=== PATIENT | female | born 1995 | race Caucasian/White ===

== ENCOUNTER 2020-05-22 17:14 | Outpatient (CLI) | payer OTHER, SELFPAY ==
[2020-05-22 18:02] LABS: Basophils Percent Auto 0.2 % (0.2-1.2); Eosinophils Percent Auto 0.3 % (0-4.4); Hematocrit 35.9 % (37.0-47.0); Hemoglobin 12.6 g/dL (12.0-15.0); Immature Granulocyte Absolute 0.03 K/mm3 (0.00-0.031); Immature Granulocyte Percent A 0.3 % (0-0.5); Lymphocytes Absolute Auto 2.53 K/mm3 (0.9-3.2); Lymphocytes Percent Auto 26.8 % (18.3-44.2); Mean Corpuscular HGB Conc 35.1 g/dl (32-36); Mean Corpuscular Hemoglobin 32.1 pg (26-34); Mean Corpuscular Volume 91.3 fl (80-100); Mean Platelet Volume 9.7 fl (7.4-10.4); Monocytes Absolute Auto 0.5 K/mm3 (0.1-0.6); Monocytes Percent Auto 5.7 % (2.6-8.5); Neutrophils Absolute Auto 6.3 K/mm3 (1.3-6.7); Neutrophils Percent Auto 66.7 % (45.5-73.1); Platelet Count Result 294 k/mm3 (150-375); Red Blood Count 3.93 M/mm3 (4.2-5.4); Red Cell Distribution Width 12.3 % (11.5-14.5); White Blood Count 9.5 K/mm3 (4.5-10.0)
[2020-05-22 18:12] LABS: Hemoglobin A1C 4.4 % (<5.7)
[2020-05-22 18:54] LABS: HIV 1/2 Ab P24 Ag Result Negative (Negative)
[2020-05-22 18:55] LABS: Vitamin D 25 Hydroxy 35.5 ng/mL
[2020-05-22 19:06] LABS: Rubella IgG Antibody 13.2 IU/ML
[2020-05-22 19:26] LABS: Hepatitis B Surface Anti Res Positive
[2020-05-25 08:22] LABS: Rapid Plasma Reagin Non-Reactive (NonReactive)
== END 2020-05-22 17:15 | disposition home or self-care (01) ==
LOC: ANHLAB 17:19
PROVIDERS: PCP Obstetrics & Gynecology Gynecology; Visit Provider Obstetrics & Gynecology Gynecology
DX: Z36.9 Encounter for antenatal screening, unspecified (principal)
CPT/HCPCS: 36415; 82306; 83036; 85025; 85461; 86592; 86703; 86706; 86762; G0432

== ENCOUNTER 2020-06-22 16:46 | Outpatient (CLI) | payer OTHER, SELFPAY ==
[2020-06-22 18:21] LABS: Free T4 Free Thyroxine 0.72 ng/mL (0.78-2.19)
== END 2020-06-22 16:47 | disposition home or self-care (01) ==
LOC: ANHLAB 16:47
PROVIDERS: PCP Obstetrics & Gynecology Gynecology; Visit Provider Obstetrics & Gynecology Gynecology
DX: Z34.92 Encounter for supervision of normal pregnancy, unspecified, second trimester (principal); Z3A.00 Weeks of gestation of pregnancy not specified
CPT/HCPCS: 36415; 84439; 84443

== ENCOUNTER 2020-06-29 16:30 | Outpatient (CLI) | payer OTHER, SELFPAY ==
--- NOTE | ~2020-06-29 | US_ITS ---
EXAMINATION: US OB /maternal detail DATE: 06/29/2020 17:10 INDICATION: anatomy scan during second trimester TECHNIQUE: Multiple obstetric sonographic images performed. FINDINGS: There is a single living fetus in transverse lie. The placenta is fundal and not low-lying. MARISA jose de jesus ures 12.4 cm. Which is normal (5th%-95%: 9.7-21.6 cm at 22 weeks estimated gestational age) hea rt rate of 155 beats per minute. The following anatomy was identified as normal: Ventricles, choroid plexus, falx and cava septum pellucidum Cerebellum and cisterna magna Nuchal fold Spine Heart Diaphragm Stomach Kidneys Bladder 3 vessel cord and cord insertion Bilateral upper and lower extremities including hands and feet The following biometric data were obtained: BPD: 4.7 cm -> 20 weeks 1 days Head circumference: 18.6 cm -> 20 weeks 6 days Abdominal circumference: 15.9 cm -> 21 weeks 0 days Femur length: 3.6 cm -> 21 weeks 2 days These measurements are concordant. Head circumference to abdominal circumference ratio: 1.17 (normal range 1.06-1.25). Estimated weight: 397 g (+/-) 60 g. or 14 oz. (+/-) 2 oz. IMPRESSION: 1. Single living fetus with transverse lie with heart rate of 155 bpm. 2. Gestational age by ultrasound of 20 weeks 6 day(s) (+/-) 1 week 3 day(s) with ultrasound estimat ed date of delivery (TRENA) of 11/10/2020. Estimated weight is 7th percentile by Hadlock criteria w hen 11/01/2020 is used as the TRENA. Please correlate with clinical information or earlier ultrasounds f or most accurate TRENA. 3. Normal survey. 4. Normal amniotic fluid index of 12.4 cm. Reviewed, dictated and finalized at location H. STRIAL PARAMEDIC IMPRESSION: 1. Single living fetus with transverse lie with heart rate of 155 bpm. 2. Gestational age by ultrasound of 20 weeks 6 day(s) (+/-) 1 week 3 day(s) w ith ultrasound estimated date of delivery (TRENA) of 11/10/2020. Estimated we ight is 7th percentile by Hadlock criteria when 11/01/2020 is used as the TRENA. P lease correlate with clinical information or earlier ultrasounds for most accur ate TRENA. 3. Normal survey. 4. Normal amniotic fluid index of 12.4 cm.
== END 2020-06-29 16:31 | disposition home or self-care (01) ==
PROVIDERS: Visit Provider Obstetrics & Gynecology Gynecology
DX: Z34.92 Encounter for supervision of normal pregnancy, unspecified, second trimester (principal); Z3A.22 22 weeks gestation of pregnancy
CPT/HCPCS: 76805

== ENCOUNTER 2020-08-10 10:03 | Outpatient (CLI) | payer OTHER, SELFPAY ==
[2020-08-10 11:53] LABS: Hematocrit 35.2 % (37.0-47.0); Hemoglobin 12.1 g/dL (12.0-15.0)
[2020-08-10 12:08] LABS: Glucose 1 Hour PP 50gm Dose 105 mg/dL
[2020-08-10 12:49] LABS: Free T4 Free Thyroxine 0.71 ng/mL (0.78-2.19); HIV 1/2 Ab P24 Ag Result Negative (Negative); Vitamin D 25 Hydroxy 49.7 ng/mL
[2020-08-10 13:04] LABS: Hepatitis B Surface Antigen Negative (Negative)
== END 2020-08-10 10:04 | disposition home or self-care (01) ==
PROVIDERS: Visit Provider Obstetrics & Gynecology Gynecology
DX: E03.9 Hypothyroidism, unspecified (principal); Z34.92 Encounter for supervision of normal pregnancy, unspecified, second trimester; Z3A.00 Weeks of gestation of pregnancy not specified
CPT/HCPCS: 36415; 82306; 82947; 84439; 84443; 85014; 85018; 86703; 87340; G0432

== ENCOUNTER 2020-08-20 15:08 | Outpatient (CLI) | payer OTHER, SELFPAY ==
--- NOTE | ~2020-08-20 | US_ITS ---
EXAMINATION: US OB follow up DATE: 08/20/2020 15:42 INDICATION: Evaluate growth and amniotic fluid index. TECHNIQUE: Real-time ultrasound of the pelvis was performed. The interpreting radiologist was not pre sent for the study. COMPARISON: 06/29/2020 FINDINGS: There is a single living fetus in breech presentation. The placenta is anterior. heart rate is 139 beats per minute (bpm). The amniotic fluid index is 10.7 cm, which is normal (5th%-95%: 9.0-23. 4 cm at 30 weeks estimated gestational age). The following biometric data were obtained: BPD: 6.8 cm -> 27 weeks 2 days Head circumference: 25.3 cm -> 27 weeks 4 days Abdominal circumference: 24.7 cm -> 29 weeks 0 days Femur length: 5.5 cm -> 29 weeks 1 days These measurements are concordant. Head circumference to abdominal circumference ratio: 1.03 (normal range 1.01-1.21). Estimated weight: 1276 g (+/-) 191 g. or 2 lbs. 13 oz. (+/-) 7 oz. IMPRESSION: 1. Single living fetus in breech presentation with heart rate of 139 bpm. 2. Gestational age by ultrasound of 28 weeks 2 day(s) +/- 2 week(s) 0 day(s) with ultrasound estimate d date of delivery (TRENA) of 11/10/2020. Estimated weight is 6th percentile by Hadlock criteria wh en 10/28/2020 is used as the TRENA. Both the estimated gestational age and percentile utilizing the prov ided gestational age are unchanged since the previous ultrasound. Please correlate with clinical info rmation or earlier ultrasounds for most accurate TRENA. 3. Normal amniotic fluid index of 10.7 cm. Reviewed, dictated and finalized at location A. NG END BANDER IMPRESSION: 1. Single living fetus in breech presentation with heart rate of 139 bpm. 2. Gestational age by ultrasound of 28 weeks 2 day(s) +/- 2 week(s) 0 day(s) wi th ultrasound estimated date of delivery (TRENA) of 11/10/2020. Estimated caron ght is 6th percentile by Hadlock criteria when 10/28/2020 is used as the TRENA. Levon th the estimated gestational age and percentile utilizing the provided gestatio nal age are unchanged since the previous ultrasound. Please correlate with clin ical information or earlier ultrasounds for most accurate TRENA. 3. Normal amniotic fluid index of 10.7 cm.
== END 2020-08-20 15:09 | disposition home or self-care (01) ==
PROVIDERS: Visit Provider Obstetrics & Gynecology Gynecology
DX: Z36.9 Encounter for antenatal screening, unspecified (principal); Z3A.28 28 weeks gestation of pregnancy
CPT/HCPCS: 76816

== ENCOUNTER 2020-10-03 10:47 | Outpatient (CLI) | payer OTHER, SELFPAY ==
[2020-10-03 11:43] LABS: Thyroid Stimulating Hormone 0.579 uIU/mL (0.465-4.680)
== END 2020-10-03 10:48 | disposition home or self-care (01) ==
LOC: ANHLAB 10:48
PROVIDERS: Visit Provider Obstetrics & Gynecology Gynecology
DX: E03.9 Hypothyroidism, unspecified (principal)
CPT/HCPCS: 36415; 84439; 84443

== ENCOUNTER 2020-10-26 07:11 | Inpatient (IN) | payer OTHER, SELFPAY ==
[2020-10-26] VITALS (99 sets, daily range): BP systolic 91–138; BP diastolic 44–91; PULSE 68–107; RESP 16; TEMP 36.3–36.8; O2SAT 98–100; BMI 29.5
--- NOTE | 2020-10-26 07:47 | LDADM ---
This patient, Rufina Laguerre, was admitted to Labor/Delivery/Recovery 107 on 10/26/20 at 07:11. Plans for labor, pain management and were discussed with patient. Patient/family oriented to hospital policies and general routines including ID bracelet, bed and alarms, visiting hours, pain management, procedures, bathroom and other care routines, personal items, smoking policy, room service/diet and guest tray routines, infant security routines, and visiting hours. Patient/Family are encouraged to report perceived risks to care and to ask questions if they do not understand what they are told or what they should do. See OBIX for further documentation.
[2020-10-26] MEDS: LACTATED RINGERS 1,000 ML 125 ML IV CONT ×2 (07:53→11:31)
[2020-10-26] MEDS: OXYTOCIN 30 UNITS/NS 500 ML 30 UNITS/500 ML BAG IV CONT (07:55)
[2020-10-26 08:03] LABS: Basophils Percent Auto 0.3 % (0.2-1.2); Eosinophils Percent Auto 0.2 % (0-4.4); Hematocrit 38.9 % (37.0-47.0); Hemoglobin 13.1 g/dL (12.0-15.0); Immature Granulocyte Absolute 0.11 K/mm3 (0.00-0.031); Immature Granulocyte Percent A 0.9 % (0-0.5); Lymphocytes Absolute Auto 2.11 K/mm3 (0.9-3.2); Lymphocytes Percent Auto 16.9 % (18.3-44.2); Mean Corpuscular HGB Conc 33.7 g/dl (32-36); Mean Corpuscular Volume 92.2 fl (80-100); Mean Platelet Volume 9.8 fl (7.4-10.4); Monocytes Absolute Auto 0.8 K/mm3 (0.1-0.6); Monocytes Percent Auto 6.3 % (2.6-8.5); Neutrophils Absolute Auto 9.4 K/mm3 (1.3-6.7); Neutrophils Percent Auto 75.4 % (45.5-73.1); Platelet Count Result 277 k/mm3 (150-375); Red Blood Count 4.22 M/mm3 (4.2-5.4); Red Cell Distribution Width 12.6 % (11.5-14.5); White Blood Count 12.5 K/mm3 (4.5-10.0)
--- NOTE | 2020-10-26 08:22 | WPDOBADMIT ---
Obstetrics - Admit Note Admission Note: record reviewed. No pertinent additions to the history and/or any subsequent changes in the physical findings that are not consistent with the expected course of the were found. Additions to the history and/or subsequent changes in the physical findings follow. here for MIL. Cervix 2/70/-2 AROM with clear fluids. FHTs reactive.
--- NOTE | 2020-10-26 11:53 | WPDANESEPP ---
Anes - Eval Pre Procedure Procedure: labor epidural Date/Time: 10/26/20 11:53 Pre Op Diagnosis: IOL Patient Data Age: 25 Gender: F Height: 1.68 m Weight: 83 kg Last Vital Signs Temp 36.8 C 10/26/20 09:30 Pulse 97 10/26/20 11:52 BP 124/57 L 10/26/20 11:52 Pulse Ox 100 10/26/20 11:48 Allergies Allergy/AdvReac Type Severity Reaction Status Date / Time No Known Allergies Allergy Verified 10/09/20 14:48 Home Medications Medication Instructions Recorded Confirmed Type ergocalciferol (vitamin D2) 1,250 mcg PO WEEKLY 10/09/20 10/26/20 History [Vitamin D2] levothyroxine 75 mcg PO DAILY 10/09/20 10/26/20 History prenat.vits,kemal,jfh-ahte-rsrrs 1 tablet PO DAILY 10/09/20 10/26/20 History [ #2] Laboratory Tests 10/26/20 10/26/20 10/26/20 07:42 07:42 07:42 WBC 12.5 K/mm3 H K/mm3 (4.5-10.0) RBC 4.22 M/mm3 M/mm3 (4.2-5.4) Hgb 13.1 g/dL g/dL (12.0-15.0) Hct 38.9 % % (37.0-47.0) MCV 92.2 fl fl (80-100) MCH 31.0 pg pg (26-34) MCHC 33.7 g/dl g/dl (32-36) RDW 12.6 % % (11.5-14.5) Plt Count 277 k/mm3 k/mm3 (150-375) MPV 9.8 fl fl (7.4-10.4) Immature Gran % (Auto) 0.9 % H % (0-0.5) Neut % (Auto) 75.4 % H % (45.5-73.1) Lymph % (Auto) 16.9 % L % (18.3-44.2) [place] % (Auto) 6.3 % % (2.6-8.5) Eos % (Auto) 0.2 % % (0-4.4) Baso % (Auto) 0.3 % % (0.2-1.2) Lymph # (Auto) 2.11 K/mm3 K/mm3 (0.9-3.2) [place] # (Auto) 0.8 K/mm3 H K/mm3 (0.1-0.6) Eos # (Auto) 0.0 K/mm3 K/mm3 (0-0.3) Baso # (Auto) 0.0 K/mm3 K/mm3 (0.0-0.1) Abs Immat Gran (auto) 0.11 K/mm3 H K/mm3 (0.00-0.031) Absolute Neuts (auto) 9.4 K/mm3 H K/mm3 (1.3-6.7) Absolute Nucleated RBC 0.0 K/mm3 K/mm3 (0.0-0.012) Nucleated RBC % 0.0 % % (0.0-0.2) RPR Pending Blood Type O Positive Antibody Screen Negative Patient hx anesthesia problems: none Family hx anesthesia problems: none [facility] Past Medical History Medical History (Updated 10/26/20 @ 11:54 by Cristy Blanc CRNA) Hypothyroid Family History Family History Grandparent Borderline diabetes Mother Chiari I malformation Social History Social History Smoking status: Never smoker Substance use: never Spiritual care concerns: No Exam Day of Procedure 10/26/20 11:53 Patient weight: overweight Heart: regular rate and rhythm Lungs: normal air movement Airway: Mallampati scale class II Neurological: alert and oriented
--- NOTE | 2020-10-26 15:42 | P.PCNOB_ITS ---
OB - Delivery Note Procedure Delivery date: 10/26/20 Procedure: events: Labor Induction Intrapartal events: None Induction method: AROM and per pitocin protocol Delivery monitor: external FHT and internal uterine Route of delivery: Laceration Description: Perineal - 2nd Degree Delivery repair: vicryl (3-0) Specimen: No Quantitative Blood Loss (ml): 53 Anesthesia type: Epidural Disposition: floor [place] Baby Date of : 10/26/20 Weeks of gestation at delivery: 39 Infant gender: Female presentation: vertex position: Right Occiput Anterior Placenta delivery description: Spontaneous cord vessel description: 3 Vessels and Nuchal Cord score one minute: 9 score five minutes: 9
--- NOTE | 2020-10-26 15:43 | PM.OBDSVD ---
DS: Admitting Diagnosis Admitting Diagnosis Admitting Diagnosis: IUP 39 wk DS: Discharge Diagnosis Discharge Diagnosis (1) (normal spontaneous vaginal delivery): Code(s): O80 - Encounter for full-term uncomplicated delivery Status: Acute OB - DS: Summary OB Procedures : Ultrasound OB Procedures Intrapartum: Spontaneous Vag Delivery OB Procedures: : None Peripartum Data Delivery Method: Natural Vaginal Laceration Description: Perineal - 2nd Degree complications: none Status at Discharge Functional status at discharge: independent ambulation Overall status at discharge: patient is progressing back to baseline Time Spent with Patient Time attestation: Total time spent providing and/or coordinating discharge services: DS: Data Data Completed and Pending Labs on day of discharge: Labs from last 24 hours 10/26/20 10/26/20 10/26/20 07:42 07:42 07:42 WBC 12.5 H RBC 4.22 Hgb 13.1 Hct 38.9 MCV 92.2 MCH 31.0 MCHC 33.7 RDW 12.6 Plt Count 277 MPV 9.8 Immature Gran % (Auto) 0.9 H Neut % (Auto) 75.4 H Lymph % (Auto) 16.9 L [place] % (Auto) 6.3 Eos % (Auto) 0.2 Baso % (Auto) 0.3 Lymph # (Auto) 2.11 [place] # (Auto) 0.8 H Eos # (Auto) 0.0 Baso # (Auto) 0.0 Abs Immat Gran (auto) 0.11 H Absolute Neuts (auto) 9.4 H Absolute Nucleated RBC 0.0 Nucleated RBC % 0.0 RPR Pending Blood Type O Positive Antibody Screen Negative Discharge Plan Discharge Attending physician on discharge: Angeli Poe Discharging Clinician: Angeli Poe Anticipated Discharge Date/Time: 10/27/20 15:44 Patient Disposition: Home, Self-Care Activity: may shower and pelvic rest Diet: regular Discharge Instructions: Education: Mom and Baby Guide Given to: Mother Follow-Up: Call your delivering provider's office for an appointment to be seen in: 6 Week Mom and baby should come to the [facility] for the follow-up appointment. Appointment Date/Time:October at 8:00 am What to expect at your follow-up visit: Blood Pressure Check Physical Assessment Call [phone] if you are unable to keep your appointment time. BREAST CARE: * Wear a snug supportive bra. Bottle Feeding: * May apply ice packs EPISIOTOMY/PERINEAL CARE: * Until bleeding stops, use your ann bottle after urinating * Change your pad frequently throughout the day * You may take sitz baths several times a day (fill your bathtub with warm water and soak for 20 minutes.) Do NOT bathe in the water * No tub baths until seen by your physician - You may shower ACTIVITY: * Rest as much as possible. * Do not exercise or lift anything heavier than your baby (such as laundry or other children.) * Avoid stairs or driving as much as possible. * Do not put anything into the vagina. No douching, tampons, or sexual activity until seen by physician. NOTIFY PHYSICIAN IF YOU HAVE ANY QUESTIONS OR IF ANY OF THE FOLLOWING SYMPTOMS OCCUR: * If your episiotomy becomes red, swollen, or more painful than what you have experienced in the hospital. * If your vaginal bleeding becomes foul smelling. * If your vaginal bleeding becomes more heavy than a period or if your bleeding changes from pink to bright red. However, you may pass an occasional walnut-sized clot once or twice for the first week . * If you experience a sharp, shooting pain in you calves. * If you discover a hard, reddened area on your breast or if you experience flu-like symptoms. DIET: * Eat regular, well-balanced meals. * Drink plenty of fluids daily. If , drink to thirst. Patient Instructions: Antibiotic Form Stand Alone Forms: General Discharge Information Follow-up/Referrals: Angeli Poe MD [Physician] - 6 Weeks Discharge Medications: New norethindrone (c
[2020-10-26] MEDS: OXYTOCIN 30 UNITS/NS 500 ML 30 UNITS/500 ML BAG 125 UNITS IV CONT (16:06)
[2020-10-26] MEDS: WITCH HAZEL 40 PADS 1 PAD TOPICAL ×2 (17:47→18:48)
[2020-10-26] MEDS: BENZOCAINE 20% AER SPR (*SP) 56 GM CAN 1 SPRAY TOPICAL ×2 (17:47→18:48)
--- NOTE | 2020-10-26 19:09 | OBPPTRN ---
Patient transferred to post room #283 via wheelchair. Support person present. Oriented to unit, room, information board, rooming in, admission packet and security measures. Patient verbalizes understanding.
[2020-10-27] VITALS: BP 115/63; PULSE 79; RESP 16; TEMP 36.7; O2SAT 99
[2020-10-27] MEDS: DOCUSATE SODIUM 100 MG CAPSULE PO ×3 (03:16→15:45)
[2020-10-27 03:40] VITALS: BP 112/73; PULSE 76; RESP 16; TEMP 36.6; O2SAT 100
[2020-10-27 04:14] LABS: Hematocrit 36.6 % (37.0-47.0); Hemoglobin 12.3 g/dL (12.0-15.0)
[2020-10-27 06:59] LABS: Rapid Plasma Reagin Non-Reactive (NonReactive)
[2020-10-27] MEDS: IBUPROFEN 600 MG TABLET PO ×2 (07:21→15:44)
[2020-10-27] MEDS: MULTIVIT/MIN/PREN/FOL AC/IRON TABLET 1 TAB PO (07:22)
[2020-10-27] MEDS: LEVOTHYROXINE SODIUM 75 MCG TABLET PO (07:22)
[2020-10-27 07:27] VITALS: BP 118/67; PULSE 75; RESP 18; TEMP 36.3
--- NOTE | 2020-10-27 07:43 | P.PNOB_ITS ---
OB - PN: Subj Subjective Date/time seen: 10/27/20 07:43 Patient comments: no complaints and pain well controlled baby status: doing well OB - PN: Obj Data Labs CBC & Chem 7: 10/27/20 03:11 Labs: Laboratory Results - last 24 hr 10/26/20 10/26/20 10/26/20 07:42 07:42 07:42 WBC 12.5 H RBC 4.22 Hgb 13.1 Hct 38.9 MCV 92.2 MCH 31.0 MCHC 33.7 RDW 12.6 Plt Count 277 MPV 9.8 Immature Gran % (Auto) 0.9 H Neut % (Auto) 75.4 H Lymph % (Auto) 16.9 L [place] % (Auto) 6.3 Eos % (Auto) 0.2 Baso % (Auto) 0.3 Lymph # (Auto) 2.11 [place] # (Auto) 0.8 H Eos # (Auto) 0.0 Baso # (Auto) 0.0 Abs Immat Gran (auto) 0.11 H Absolute Neuts (auto) 9.4 H Absolute Nucleated RBC 0.0 Nucleated RBC % 0.0 RPR Non-reactive Blood Type O Positive Antibody Screen Negative 10/27/20 03:11 WBC RBC Hgb 12.3 Hct 36.6 L MCV MCH MCHC RDW Plt Count MPV Immature Gran % (Auto) Neut % (Auto) Lymph % (Auto) [place] % (Auto) Eos % (Auto) Baso % (Auto) Lymph # (Auto) [place] # (Auto) Eos # (Auto) Baso # (Auto) Abs Immat Gran (auto) Absolute Neuts (auto) Absolute Nucleated RBC Nucleated RBC % RPR Blood Type Antibody Screen OB - PN A/P Plan day: 1 Plan: routine care Comments: plans oc's Time Spent With Patient Time: Total time spent is greater than 50% in coordination of care (as documented) at patient's floor/unit and/or counseling patient: Exam : Bimanual exam- vagina & uterus: other (Uterus firm, nt @U)
--- NOTE | 2020-10-27 08:00 | PC.NURSE ---
consult with pt., mother reports she had issues with latch and milk supply with first child. Mother states she did not get her milk in and has breast hypoplasia. Mother states she had depression and anxiety over with first and has had anxiety with this child. Mother wishes to attempt infant to breast a few minutes each feeding and will then bottle feed. Mother does not wish to attempt for more than a few minutes or pump, due to anxiety. Offered to assist with feedings, mother can call out.
[2020-10-27 12:00] VITALS: BP 103/55; PULSE 73; RESP 18; TEMP 36.3
--- NOTE | 2020-10-27 14:44 | WPDANLDPN2 ---
Anes-Prog Note L&D Date/Time: 10/27/20 14:44 Comfortable throughout: labor and delivery Neuraxial method: epidural Epidural/Spinal procedure site: clean & non-tender Neuro status: Neuro function grossly intact. Cardiovascular status: normal Respiratory status: normal Airway patency: baseline Mental status: baseline Post-Op hydration status: normal Vital Signs: Last Vital Signs Temp 97.3 F L 10/27/20 12:00 Pulse 73 10/27/20 12:00 Resp 18 10/27/20 12:00 BP 103/55 L 10/27/20 12:00 Pulse Ox 100 10/27/20 03:40 Pain score (VAS): 0/10 I/O: Intake & Output 10/26/20 10/27/20 10/27/20 23:59 07:59 15:59 Intake Total 2000 Output Total 146 Balance 1854 Post-procedural complaints: none Patient feedback: Patient satisfied with anesthetic care.
[2020-10-27] MEDS: WITCH HAZEL 40 PADS 1 PAD TOPICAL (15:44)
[2020-10-27] MEDS: BENZOCAINE 20% AER SPR (*SP) 56 GM CAN 1 SPRAY TOPICAL (15:44)
[2020-10-27 18:40] VITALS: BP 115/68; PULSE 76; RESP 18; TEMP 36.6; O2SAT 100
[2020-10-28] MEDS: IBUPROFEN 600 MG TABLET PO ×2 (03:19→09:51)
[2020-10-28] MEDS: WITCH HAZEL 40 PADS 1 PAD TOPICAL (07:58)
[2020-10-28] MEDS: BENZOCAINE 20% AER SPR (*SP) 56 GM CAN 1 SPRAY TOPICAL (07:58)
[2020-10-28] MEDS: DOCUSATE SODIUM 100 MG CAPSULE PO (07:58)
[2020-10-28 08:00] VITALS: BP 122/73; PULSE 76; RESP 18; TEMP 36.1
--- NOTE | 2020-10-28 08:23 | PM.OBPNVD ---
OB - PN: Subj Subjective Date/time seen: 10/28/20 0823 no complaints OB - PN: Obj Data Labs CBC & Chem 7: 10/27/20 03:11 OB - PN A/P Assessment and Plan (1) (normal spontaneous vaginal delivery): Code(s): O80 - Encounter for full-term uncomplicated delivery Status: Acute Assessment and Plan: d/c home Time Spent With Patient Time: Total time spent is greater than 50% in coordination of care (as documented) at patient's floor/unit and/or counseling patient:
--- NOTE | 2020-10-28 08:50 | PC.NURSE ---
Consult with pt., mother reports she has been bottle feeding and will attempt infant to breast at times. Mother states she feels content with this feeding plan and will call if she has questions or concerns. Mother states she is appreciative for LC consult and understanding her wishes, and not having pressure to exclusively breastfeed with her situation. Assured mother how she feeds her child is her choice and hospital will follow her wishes.
--- NOTE | 2020-10-28 09:00 | PC.NURSE ---
Patient was given the opportunity to view the discharge video Mother & Baby Care, The First Two Weeks and to ask questions. Patient declined viewing the video and has been given the mother/baby guide for home reference.
--- NOTE | 2020-10-28 10:44 | PC.NURSE ---
Self care and infant care discharge instructions given including follow up visit date and time. Pt. verbalized understanding. No questions or concerns voiced. Very pleasant and cooperative. at side.
[2020-10-29 08:36] VITALS: BP 119/65; PULSE 64; RESP 20; TEMP 36.6; O2SAT 100
== END 2020-10-28 13:25 | disposition home or self-care (01) | DRG 807 ==
LOC: ANHLDR 10-28 20:09 → ANHOB2 10-28 20:09
PROVIDERS: Admitting Provider Obstetrics & Gynecology Gynecology; Visit Provider Obstetrics & Gynecology
DX: O99.284 Endocrine, nutritional and metabolic diseases complicating childbirth (principal); Z37.0 Single live birth; Z3A.39 39 weeks gestation of pregnancy; E03.9 Hypothyroidism, unspecified; O70.1 Second degree perineal laceration during delivery
CPT/HCPCS: 36415; 85014; 85018; 85025; 86592; 86850; 86900; 86901; A9270; J2590; J2795; J7120

== ENCOUNTER 2020-12-21 13:37 | Outpatient (CLI) | payer OTHER, SELFPAY ==
[2020-12-21 15:17] LABS: Thyroid Stimulating Hormone 0.201 uIU/mL (0.465-4.680)
[2020-12-21 18:52] LABS: Free T4 Free Thyroxine 1.04 ng/mL (0.78-2.19)
== END 2020-12-21 13:38 | disposition home or self-care (01) ==
LOC: ANHLAB 13:39
PROVIDERS: Visit Provider Obstetrics & Gynecology Gynecology
DX: E03.9 Hypothyroidism, unspecified (principal)
CPT/HCPCS: 36415; 84439; 84443

== ENCOUNTER 2021-07-28 09:14 | Outpatient (CLI) | payer OTHER, SELFPAY ==
[2021-07-28 10:41] LABS: Thyroid Stimulating Hormone 0.537 uIU/mL (0.465-4.680)
[2021-07-28 11:01] LABS: Free T4 Free Thyroxine 0.94 ng/mL (0.78-2.19)
== END 2021-07-28 09:15 | disposition home or self-care (01) ==
PROVIDERS: Visit Provider Nurse Practitioner
DX: E03.9 Hypothyroidism, unspecified (principal)
CPT/HCPCS: 36415; 84439; 84443

== ENCOUNTER 2022-05-06 15:11 | Outpatient (CLI) | payer OTHER, SELFPAY ==
[2022-05-06 16:15] LABS: Free T4 Free Thyroxine 1.16 ng/mL (0.78-2.19)
[2022-05-06 16:22] LABS: Thyroid Stimulating Hormone 0.783 uIU/mL (0.465-4.680)
== END 2022-05-06 15:12 | disposition home or self-care (01) ==
LOC: ANHLAB 15:14
PROVIDERS: Visit Provider Obstetrics & Gynecology Gynecology
DX: E03.9 Hypothyroidism, unspecified (principal)
CPT/HCPCS: 36415; 84439; 84443